=== PATIENT | male | born 1960 | race Caucasian/White ===

== ENCOUNTER 2016-12-02 15:57 | Inpatient (IN) ==
[2016-12-02] MEDS ORDERED: ASPIRIN PO STA (16:17)
[2016-12-02] MEDS ORDERED: ZOFRAN IV ONE (16:18)
[2016-12-02] MEDS ORDERED: MORPHINE IV ONE ×2 (16:18→20:13)
[2016-12-02 16:54] LABS: URINE MICRO REVIEW NEEDED? NO; URINE SOURCE CLEAN CATCH
[2016-12-02 17:03] LABS: BILIRUBIN URINE NEGATIVE (NEGATIVE); BLOOD URINE LARGE (NEGATIVE); COLOR YELLOW; GLUCOSE URINE NEGATIVE (NEGATIVE); LEUKOCYTES URINE NEGATIVE (NEGATIVE); NITRITE URINE NEGATIVE (NEGATIVE); PROTEIN URINE TRACE mg/dL (NEGATIVE); TURBIDITY URINE CLEAR (CLEAR); UR EPITHELIAL CELLS <10 /HPF (<10); URINE BACTERIA NEGATIVE /HPF; URINE CULTURE NEEDED? YES; URINE RBC TNTC /HPF (<10); UROBILINOGEN URINE 2 mg/dL (NORMAL)
[2016-12-02 17:10] LABS: BASO% 0.1 % (0.0-0.8); EOS# 0.06 X1000 (0.0-0.7); EOS% 0.5 % (0.0-10.0); HEMATOCRIT 47.4 % (42.0-52.0); HEMOGLOBIN 16.4 g/dL (14.0-18.0); IMM GRAN# 0.03 X1000 (0.0-0.04); IMM GRAN% 0.3 % (0.0-0.5); LYMPH% 7.8 % (20.5-51.1); MANUAL DIFF NEEDED? NO; MCH 30.8 PG (27-31); MCHC 34.6 g/dL (33-37); MCV 89.1 FL (81-99); MONO# 0.62 X1000 (0.11-0.59); MONO% 5.4 % (1.7-9.3); MPV 11.4 FL (7.4-10.4); NEUT% 85.9 % (42.2-75.2); PLT 288 X1000 (130-400); RBC 5.32 XMIL (4.7-6.1)
[2016-12-02 17:12] LABS: INR 0.98; PROTIME 10.3 Seconds (9.2-11.7); PTT 26.9 Seconds (22.0-36.0)
[2016-12-02 17:26] LABS: AGAP 13; ALBUMIN 4.6 g/dL (3.5-5.0); ALKALINE PHOSPHATASE 49 U/L (32-122); BUN 24 mg/dL (8-22); CALCIUM 9.7 mg/dL (8.8-10.2); CHLORIDE 104 mmol/L (98-107); COSMO 292; GOT 26 U/L (10-34); GPT 29 U/L (10-44); MAGNESIUM 2.2 mg/dL (1.5-2.7); POTASSIUM 4.5 mmol/L (3.5-5.1); SODIUM 144 mmol/L (136-145); TCO2 27 mmol/L (25-35); TOTAL BILIRUBIN 0.37 mg/dL (0.20-1.00); TOTAL PROTEIN 7.2 g/dL (6.3-8.3)
--- NOTE | 2016-12-02 17:27 | Diag Imaging Result Doc PS360 ---
EXAM: CHEST-2 VIEWS INDICATION: L side/chest/back pains TECHNIQUE: 3 views COMPARISON: 12/02/2016 FINDINGS: There is an incidental mild pectus excavatum deformity. The lungs are grossly clear. There is no discrete pleural fluid collection or pneumothorax. The cardiomediastinal silhouette and central vasculature are grossly unremarkable. IMPRESSION: No evidence of acute pathology by plain radiograph. Electronically signed by Edinson Monterroso 12/02/2016 5:25 PM
[2016-12-02 17:29] LABS: CK PROFILE 307 U/L (24-204)
[2016-12-02 17:49] LABS: CK INDEX 4.6 (0.0-2.5); CK-MB 14.16 ng/mL (0.0-5.0)
[2016-12-02 19:09] LABS: CK INDEX 4.8 (0.0-2.5); CK-MB 12.48 ng/mL (0.0-5.0)
--- NOTE | 2016-12-02 19:20 | Diag Imaging Result Doc PS360 ---
EXAM: CT RENAL STONE SEARCH INDICATION: flank/back pains, hematuria TECHNIQUE: Dose reduction protocol was used. COMPARISON: None. FINDINGS: The partially imaged liver and spleen are essentially unremarkable. The gallbladder is partially contracted. The pancreas and adrenal glands are grossly unremarkable. There is a 5 mm obstructing stone in the mid left ureter with associated moderate left hydronephrosis. The urinary bladder is grossly unremarkable. There is fairly extensive diverticulosis coli mainly involving the sigmoid colon but there is no evidence of diverticulitis. There is no evidence of bowel obstruction. The remainder of the GI tract is grossly unremarkable. IMPRESSION: 1.5 mm obstructing stone in the mid left ureter with associated moderate left hydronephrosis. 2.Other incidental/nonacute findings detailed above. Electronically signed by Edinson Monterroso 12/02/2016 7:17 PM
[2016-12-02] MEDS ORDERED: NS 1,000 ML IV ONE (19:24)
[2016-12-02] MEDS ORDERED: FLOMAX PO ONE (19:24)
--- NOTE | 2016-12-02 19:24 | PROVIDER DOCUMENTATION ---
This chart was entered by Susu Webb Scribe, acting as scribe for Zen Lind PA. HPI-Musculoskeletal Pain/Inj - GENERAL Chief Complaint: Back Pain Stated Complaint: LT SIDE PAIN Time Seen by Provider: 12/02/16 16:10 Source: patient - HX OF PRESENT ILLNESS-MUSKULOSKELTAL Nature of Presenting Problem: pt complains of pain to left back onset 0530 upon awakening, pt states pain is dull, achy with occasional sharp shooting pains. pt states he was able to get up and walk to bathroom then began having cold sweats. pt reports multiple episodes of pain changing to sharp and breaking out into cold sweat. He reports that the pain radiates into his left chest wall. there is no point tenderness. Pt denies any previous episodes. He states that he once had an episode of pericarditis but no other cardiac hx noted. Quality of Pain: reports: aching, dull, sharp (occasional sharp/shooting pain) Onset/Duration: this morning Timing: still present Modifying Factors: worse with: analgesics, lying down Any recent injury?: No Locality of Occurance: Home Similar Symptoms Previously?: No Recently seen or treated by another doctor?: No - BACK & NECK PAIN/INJURY Back/Neck Pain Location: reports: paraspinous muscles (left paraspinous into left flank) Back/Neck Pain Radiation: reports: Other (flank, left) Associated Symptoms: reports: muscle spasms History of Chronic Neck or Back Pain?: No Review of Systems - Adult - REVIEW OF SYSTEMS - ADULT Constitutional: reports: night sweats Eyes: reports: no symptoms reported Ears, Nose, Mouth & Throat: reports: no symptoms reported Cardiovascular: reports: no symptoms reported Respiratory: reports: no symptoms reported Gastrointestinal: reports: nausea Genitourinary: reports: flank pain Musculoskeletal: reports: see HPI, back pain Integumentary: reports: no symptoms reported Neurological: reports: no symptoms reported Psychiatric: reports: no symptoms reported Endocrine: reports: no symptoms reported Hematologic/Lymphatic: reports: no symptoms reported Allergic/Immunologic: reports: no symptoms reported All Other Systems: Reviewed and Negative Past History - Adult - PAST MEDICAL HISTORY-ADULT Review of Records: reports: Old Records Reviewed, Nursing Assessment Review, Medications Reviewed, Social history reviewed & non-contributory. Major Childhood Illnesses: reports: denies history Cardiovascular: reports: denies history Respiratory: reports: denies history Gastrointestinal: reports: denies history Musculoskeletal: reports: denies history Neurological: reports: Muscular Dystrophy Psychiatric: reports: denies history Endocrine/Immune: reports: denies history Other Conditions: reports: denies history - PRIOR SURGERIES/PROCEDURES Surgical/Procedure History: reports: none - FAMILY HISTORY Family History: reviewed, not pertinent Physical Exam-Injury Related - Physical Exam-Injury Related Initial Vital Signs Reviewed: Yes General Appearance: appears well, alert, no apparent distress Eyes: PERRL/EOMI Head, Ears, Nose, Mouth & Throat: normocephalic/atraumatic, moist mucous membranes Neck: non-tender, full range of motion Respiratory: chest non-tender, lungs clear, normal breath sounds Cardiovascular: normal peripheral pulses, regular rate, rhythm Abdominal Exam: normal bowel sounds, non tender Male Genitalia: deferred Rectal Exam: deferred Hemoccult Exam: deferred Lymphatic: no adenopathy Back Exam: normal inspection, no CVA tenderness, other (left paraspinal pain/ tenderness radiating into left flank) Extremity: normal range of motion, normal inspection Integumentary: normal color, warm/dry Psych/Mental Status: normal mood/affect - Glascow Coma Score Best Eye Response (Lake): (4) open spontaneously Best Verbal Response ([place]ake): (5) oriented Best Motor Response ([place]): (6) obeys commands Progress - PLAN OF CARE/RESULTS Progress/Plan/Lab Results: Vital Signs - 8 hr 12/02/16 15:59 Temperature 98.6 F Pulse Rate 86 Respiratory Rate 16 Blood Pressure 191/91 O2 Sat by Pulse Oximetry 99 Laboratory Results - last 24 hr 12/02/16 12/02/16 12/02/16 16:36 16:45 16:45 WBC 11.55 H RBC 5.32 Hgb 16.4 Hct 47.4 MCV 89.1 MCH 30.8 MCHC 34.6 RDW Std Deviation 13.5 Plt Count 288 MPV 11.4 H Immature Gran % (Auto) 0.3 Neut % (Auto) 85.9 H Lymph % (Auto) 7.8 L Cameron % (Auto) 5.4 Eos % (Auto) 0.5 Baso % (Auto) 0.1 Immature Gran # (Auto) 0.03 Neut # (Auto) 9.93 H Lymph # (Auto) 0.90 L Cameron # (Auto) 0.62 H Eos # (Auto) 0.06 Baso # (Auto) 0.01 PT INR PTT (Actin FS) D-Dimer Sodium 144 Potassium 4.5 Chloride 104 Carbon Dioxide 27 Anion Gap 13 BUN 24 H Creatinine 0.9 Estimated GFR/1.73 m2 > 60 BUN/Creatinine Ratio 27 Glucose 126 H Calculated Osmolality 292 Calcium 9.7 Magnesium 2.2 Total Bilirubin 0.37 AST 26 ALT 29 Alkaline Phosphatase 49 Creatine Kinase 307 H Creatine Kinase Index 4.6 H CK-MB (CK-2) 14.16 H Troponin T [id number] Pept Total Protein 7.2 Albumin 4.6 Globulin 2.6 Albumin/Globulin Ratio 1.8 Urine Source CLEAN CATCH Urine Color YELLOW Urine Turbidity CLEAR Urine pH 6.0 Ur Specific [place] 1.030 Urine Protein TRACE A Ur Glucose (Stick) NEGATIVE Ur Ketones (Stick) 10 A Urine Blood LARGE A Urine Nitrite NEGATIVE Urine Bilirubin NEGATIVE Urobilinogen Dipstick 2 A Urine Leukocytes NEGATIVE Urine WBC (Auto) 10-20 A Urine RBC (Auto) TNTC A U Epithel Cells (Auto) <10 Urine Bacteria (Auto) NEGATIVE 12/02/16 12/02/16 12/02/16 16:45 16:45 16:45 WBC RBC Hgb Hct MCV MCH MCHC RDW Std Deviation Plt Count MPV Immature Gran % (Auto) Neut % (Auto) Lymph % (Auto) Cameron % (Auto) Eos % (Auto) Baso % (Auto) Immature Gran # (Auto) Neut # (Auto) Lymph # (Auto) Cameron # (Auto) Eos # (Auto) Baso # (Auto) PT 10.3 INR 0.98 PTT (Actin FS) 26.9 D-Dimer 0.29 Sodium Potassium Chloride Carbon Dioxide Anion Gap BUN Creatinine Estimated GFR/1.73 m2 BUN/Creatinine Ratio Glucose Calculated Osmolality Calcium Magnesium Total Bilirubin AST ALT Alkaline Phosphatase Creatine Kinase Creatine Kinase Index CK-MB (CK-2) Troponin T [id number] Pept 50 Total Protein Albumin Globulin Albumin/Globulin Ratio Urine Source Urine Color Urine Turbidity Urine pH Ur Specific [place] Urine Protein Ur Glucose (Stick) Ur Ketones (Stick) Urine Blood Urine Nitrite Urine Bilirubin Urobilinogen Dipstick Urine Leukocytes Urine WBC (Auto) Urine RBC (Auto) U Epithel Cells (Auto) Urine Bacteria (Auto) 12/02/16 12/02/16 12/02/16 16:45 18:16 18:16 WBC RBC Hgb Hct MCV MCH MCHC RDW Std Deviation Plt Count MPV Immature Gran % (Auto) Neut % (Auto) Lymph % (Auto) Cameron % (Auto) Eos % (Auto) Baso % (Auto) Immature Gran # (Auto) Neut # (Auto) Lymph # (Auto) Cameron # (Auto) Eos # (Auto) Baso # (Auto) PT INR PTT (Actin FS) D-Dimer Sodium Potassium Chloride Carbon Dioxide Anion Gap BUN Creatinine Estimated GFR/1.73 m2 BUN/Creatinine Ratio Glucose Calculated Osmolality Calcium Magnesium Total Bilirubin AST ALT Alkaline Phosphatase Creatine Kinase 261 H Creatine Kinase Index 4.8 H CK-MB (CK-2) 12.48 H Troponin T 0.034 0.038 Cpn-V-Cdxpmywarsq Pept Total Protein Albumin Globulin Albumin/Globulin Ratio Urine Source Urine Color Urine Turbidity Urine pH Ur Specific [place] Urine Protein Ur Glucose (Stick) Ur Ketones (Stick) Urine Blood Urine Nitrite Urine Bilirubin Urobilinogen Dipstick Urine Leukocytes Urine WBC (Auto) Urine RBC (Auto) U Epithel Cells (Auto) Urine Bacteria (Auto) Orders Category Date Time Status Saline Loc NOW Care 12/02/16 16:17 Active CHEST-2 VIEWS [RAD] Stat Exams 12/02/16 16:[address] RENAL STONE SEARCH [CT] Stat Exams 12/02/16 17:04 Taken CBC WITH ELECTRONIC DIFF [HEME] Stat Lab 12/02/16 16:45 Completed CK PROFILE [SP CHEM] Stat Lab 12/02/16 16:45 Completed CK PROFILE [SP CHEM] Stat Lab 12/02/16 18:16 Completed COMPREHENSIVE METABOLIC PANEL [CHEM] Stat Lab 12/02/16 16:45 Completed D-DIMER [CHEM] Stat Lab 12/02/16 16:45 Completed MAGNESIUM [CHEM] Stat Lab 12/02/16 16:45 Completed PRO B-NATRIURETIC PEPTIDE Stat Lab 12/02/16 16:45 Completed PROTIME WITH INR [COAG] Stat Lab 12/02/16 16:45 Completed PTT [COAG] Stat Lab 12/02/16 16:45 Completed TROPONIN T Stat Lab 12/02/16 16:45 Completed TROPONIN T Stat Lab 12/02/16 18:16 Completed URINALYSIS W/POSS RFLX CULT-1 [URINALYSIS] Stat Lab 12/02/16 16:36 Completed URINE CULTURE [RM] Routine Lab 12/02/16 17:16 Received Aspirin Med 12/02/16 16:17 Discontinued 325 mg PO STAT STA Morphine Med 12/02/16 16:18 Discontinued 4 mg IV NOW ONE Ondansetron [Zofran] Med 12/02/16 16:18 Discontinued 4 mg IV NOW ONE EKG [EKG] Stat Ther 12/02/16 16:17 Ordered EKG [EKG] Stat Ther 12/02/16 18:09 Ordered Pt's troponin and CK-index have actually gone up although his CK-MB is trending down. I do believe that this is most likely due to his kidney stone however I am concerned that this may have potentially cause strain to his heart. Will discuss c hospitalist for possible admission. Result Diagrams: 12/02/16 16:45 12/02/16 16:45 - REASSESSMENT Reassessment #1 Time Reassessed: 19:05 Status: improving (Pain has improved after medications.) - CT/MRI 1 CT Study: Renal Stone CT Results: 5mm obstructing stone in mid L ureter c Left hydronephrosis - CONSULTS/PCP/HOSPITALIST Notification #1 *Consult/PCP/Hospitalist*: Dr. Davila Time Discussed: 19:23 Consult Disposition: Admit Departure - Departure Date of Disposition Decision: 12/02/16 Time of Disposition Decision: 19:23 DIAGNOSIS: Ureteral stone with hydronephrosis, Elevation of cardiac enzymes Disposition: ADMITTED INPATIENT 09 Certified Medical Emergency: Emergent Condition: Stable Referrals and Follow-Ups: Edinson Carlson MD [Primary Care Provider] - - Critical Care Note This patient required my direct & personal management of CC.: No Attestation - Physician/ CINTIA Attestation Patient care was provided by Advanced Practice Provider:: Yes Advanced Practice Provider:: Zen Lind Advanced Practice Provider documentation review:: The Mid-level provider documentation, treatment plan and medical decision making was reviewed by the physician who agrees with all treatment and medical decision making by the MLP. The physician spent face to face time with patient:: Yes Advanced Practice Provider documentation review:: Supervising physician onsite and consulted in the evaluation and care of this patient. The physician did have a face to face encounter with the patient. This chart was documented by the indicated misty, (Susu Webb, Scribe) and accurately reflects the services I performed and decisions made by , Zen Lind PA, as attested by the provider's signature.
[2016-12-02] MEDS ORDERED: DILAUDID IV ONE (19:55)
[2016-12-02 20:57] LABS: HEMOGLOBIN A1C 5.2 % (4.8-6.0)
--- NOTE | 2016-12-02 21:23 | HISTORY AND PHYSICAL ---
Patient of Dr. Edinson Carlson. REASON FOR ADMISSION: Left flank pain today. HISTORY OF PRESENT ILLNESS: Mr. Saeed Suresh is a 56-year-old man with a past medical history of facioscapulohumeral muscular dystrophy. He comes in today complaining and being awakened by left flank pain which he describes as achy and dull and radiating to the lower most left rib. He says he managed to get up and walk to the bathroom urinate and he said the pain got worse, this intensity pain caused him to break out in a profuse sweat. He then laid back in the supine position in his bed and says the pain eased a little. Said later after an hour tried to get up again and the pain intensified. This went on back and forth for the next 4 hours. He then managed to get up to the recliner and stayed there for 4 hours took some Aleve which initially helped take the edge off his pain but 4 hours later the pain intensified and started radiating down to his left groin. He denies any hematuria but said his urine was darker than usual. He denied any fever or chills. He said he had some nausea intermittently with intensification of the pain. He denies any complaints. 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 On arrival here he denies any cardiorespiratory symptoms or any neurological complaints. No GI complaints otherwise, no arthralgias or rash. No visual symptoms. No headaches. No dysuria or any other genitourinary complaints. No penile discharge. REVIEW OF SYSTEMS: Twelve system review was done positive findings per HPI. ALLERGIES: No allergies. MEDICATIONS: None. SURGERY: None. FAMILY HISTORY: Negative for any kidney disease or kidney stones. No diabetes or heart disease. SOCIAL HISTORY: Does not smoke, drink, or use drugs. He is . DATA: EKG shows incomplete right bundle branch block, normal sinus rhythm with left biatrial enlargement. White count 11,000, hemoglobin and hematocrit 16 and 47, platelets 288,000, 85% neutrophils and BUN is 24, creatinine 0.9, glucose is 126, CK is 261, index 4.8 with an MB of 12.4, troponin 0.038, proBNP is normal. D-dimer is normal. Urinalysis shows too numerous to count WBCs, negative leukocytes, 10-20 white cells, nitrite negative , no bacteria noted. Renal stone CT showed a 5 mm stone with moderate left hydronephrosis and diverticulosis. Chest film no acute pathology was noted. EXAMINATION: Vital signs: Blood pressure is 160/85, heart rate 64, respirations 18, temperature 98.6. General: He is a pleasant middle-aged man who is not in acute distress, is A and O x3 with normal mood and affect. HEENT: Head is normocephalic, atraumatic. PERRLA, EOMI, anicteric not pale. ENT and oropharynx exam is grossly normal. Neck: Supple. No JVD or carotid bruit, thyromegaly. Chest: Was clear to auscultation both lung damon. Cardiovascular: First, sounds heard. No gallops, rubs. Rhythm is regular. Abdomen: Full, soft, nontender, no mass or megaly. Bowel sounds are normal. Positive left CVA tenderness noted. Extremities: Pulses distally in all extremities are intact. Good volume symmetrical, no clubbing, no cyanosis, no edema. Neuro: No focal deficits appreciated. Skin: Intact. No breakdown , lesion, erythema. Muscular exam: Patient has noticeable symmetrical upper extremity atrophy. Also has notable winging of his scapula more on the right compared to the left. ASSESSMENT: At this time is 1. Left hydronephrosis secondary to ureteral nephrolithiasis. 2. Abnormal cardiac enzymes ? from muscular dystrophy versus true ischemic event. 3. Elevated blood pressure. 4. Abnormal EKG PLAN: This time patient will be admitted, aggressively hydrated. Serial cardiac enzymes will be done. Will be treated symptomatically relating to the kidney stone in his left ureter and will consult urology to see in a.m. due to the nature of his cardiac enzymes and abnormal EKG will get cardiology involved. Due to the fact he has muscular dystrophy this could be a false positive. However with elevated blood pressure and abnormal EKG this needs to be worked up further. Echocardiogram was also ordered because is possible his muscular dystrophic illness could extend to his myocardium and this needs to be evaluated. He has had a cardiac catheterization done in the past and was normal at [place]. At that time was diagnosed with pericarditis. Aspirin has been started and Lovenox DVT prophylaxis be done, check A1c and lipid panel and modify any necessary risk factors. cc: Edinson Carlson MD MTDD
[2016-12-03] MEDS ORDERED: DILAUDID ONE (00:23)
[2016-12-03] MEDS ORDERED: TYLENOL PO SCH (00:33)
[2016-12-03] MEDS ORDERED: NORCO-7.5 PO PRN (00:33)
[2016-12-03] MEDS ORDERED: ZOFRAN IV PRN (00:33)
[2016-12-03] MEDS: DILAUDID IV PRN ×2 (00:40→09:45)
[2016-12-03] MEDS ORDERED: LOVENOX SUBQ SCH (01:00)
[2016-12-03] MEDS: NS 1,000 ML IV SCH ×4 (01:25→18:29)
[2016-12-03] MEDS: TORADOL IV SCH ×4 (01:25→18:28)
[2016-12-03] MEDS: PRILOSEC PO SCH ×2 (01:25→09:48)
[2016-12-03 02:03] LABS: HDL 43 mg/dL (35-55); LDL 124 mg/dL; TRIGLYCERIDES 92 mg/dL (39-160); VLDL 18 mg/dL
[2016-12-03 05:58] LABS: MANUAL DIFF NEEDED? NO
[2016-12-03 06:22] LABS: BASO% 0.1 % (0.0-0.8); EOS# 0.13 X1000 (0.0-0.7); EOS% 1.4 % (0.0-10.0); HEMATOCRIT 45.4 % (42.0-52.0); HEMOGLOBIN 15.5 g/dL (14.0-18.0); LYMPH# 1.35 X1000 (1.2-3.4); LYMPH% 14.2 % (20.5-51.1); MCH 30.8 PG (27-31); MCHC 34.1 g/dL (33-37); MCV 90.1 FL (81-99); MONO% 10.5 % (1.7-9.3); MPV 11.4 FL (7.4-10.4); NEUT% 73.8 % (42.2-75.2); PLT 209 X1000 (130-400); RBC 5.04 XMIL (4.7-6.1)
[2016-12-03 06:49] LABS: AGAP 12; ALBUMIN 3.5 g/dL (3.5-5.0); ALKALINE PHOSPHATASE 43 U/L (32-122); BUN 21 mg/dL (8-22); CALCIUM 8.7 mg/dL (8.8-10.2); CHLORIDE 105 mmol/L (98-107); COSMO 284; GOT 26 U/L (10-34); GPT 22 U/L (10-44); POTASSIUM 4.2 mmol/L (3.5-5.1); SODIUM 141 mmol/L (136-145); TCO2 24 mmol/L (25-35)
[2016-12-03] MEDS ORDERED: ASPIRIN PO SCH (09:00)
--- NOTE | 2016-12-03 14:37 | PROGRESS NOTE ---
DATE: 12/03/2016 SUBJECTIVE: Patient reports feeling fine. Denies any chest pain. He reports that the pain in the left flank is better controlled. Patient reports 1st time that he had this kind of pain. OBJECTIVE: Vital Signs: Temperature 97.8 degrees, heart rate 65, respiratory rate 14, blood pressure 126/68, O2 saturation 100% on room air. General: This is a 56-year-old male, lying in bed, in no acute distress. HEENT: Head is normocephalic, atraumatic. Anicteric sclerae and pale conjunctivae. Mucous membranes moist. Neck: Supple. No JVD noted. No carotid bruits. No lymphadenopathy. No thyromegaly. Cardiovascular: S1, S2 heard. No murmurs, gallops, or rubs. Regular rate and rhythm. Respiratory: Clear bilaterally to auscultation. No work of breathing or using accessory muscles. Abdomen: Soft, nontender to palpation. Bowel sounds present. No organomegaly. Positive left CVA tenderness noted. Extremities: Peripheral pulses present in both legs. No clubbing, cyanosis or edema. Neurologic: There is 5/5 motor strength in all 4 extremities. Musculoskeletal: The patient has also noticeable symmetrical upper extremity atrophy and notable winging of his scapula more on the right when compared to the left. LABORATORY DATA: CBC is unremarkable as well the BMP. Troponins have been negative four sets. CK-MB 12.48. ASSESSMENT AND PLAN: 1. Left hydronephrosis secondary to ureteral nephrolithiasis. Renal function is okay. Urology has been consulted. We will see what they have to say. Pain is under control. We will continue with the same management. 2. Abnormal cardiac enzymes, although the troponins are negative so far. Four sets are negative. CK-MB has been elevated. For that reason, Cardiology was consulted on admission. An echocardiogram will be done. We will follow results. 3. Hypertension. The blood pressure is now much better at 126/60 on last reading. Patient has not been restarted on any blood pressure medications. 4. Overall this patient is doing good. After Urology evaluation, we will see what they plan. When he is cleared by both Urology and Cardiology, he can be discharged. cc: Dawood Montoya MD
[2016-12-03] MEDS ORDERED: DIPRIVAN 1% ONE (14:45)
[2016-12-03] MEDS ORDERED: XYLOCAINE-MPF 2% ONE (14:45)
[2016-12-03] MEDS ORDERED: FENTANYL ONE (14:48)
[2016-12-03] MEDS ORDERED: KEFZOL 1 GM/D5W 1 GM/50 ML IVPB ONE (15:17)
[2016-12-03] MEDS ORDERED: DECADRON ONE (15:35)
--- NOTE | 2016-12-03 16:33 | ECHO REPORT ---
ORDER DATE: 12/03/2016 ECHOCARDIOGRAPHIC MEASUREMENTS: 1. Interventricular septum 1.4 2. Left ventricular posterior wall 1.4. 3. Diastolic diameter 4.2. 4. Left atrium 3.4. 5. Aorta 3.6. SUMMARY OF 2-DIMENSIONAL IMAGIN. Normal left ventricular cavity size. Mild left ventricular hypertrophy. Estimated ejection fraction of 60-65%. Aortic valve leaflets are trileaflet. Mitral valve was normal. Tricuspid valve was normal. Pulmonic valve was normal. 2. Peak velocity across the aortic valve less than 2 m/sec. There is no aortic stenosis or regurgitation. There is mild mitral regurgitation. Mild tricuspid regurgitation. Peak velocity across the tricuspid valve was 2.5 m/sec. There is trace pulmonary regurgitation. Anterior echo-free space suggestive of pericardial fat pad was noted. There is no pericardial effusion or obvious intracardiac mass or thrombus seen. Prominent eustachian valve was noted. Normal variant. cc: MD Hugo Carrillo MD
[2016-12-03 16:52] VITALS: BP 158/82
[2016-12-03] MEDS ORDERED: NORCO-10 PO PRN (16:53)
--- NOTE | 2016-12-03 20:13 | CONSULTATION ---
DATE OF CONSULTATION: 12/03/2016 CONSULTING PHYSICIAN: Hugo Davila MD with Hospitalist Service. REASON FOR CONSULTATION: Left ureteral stone. HISTORY OF PRESENT ILLNESS: A 56-year-old male without previous history of urolithiasis, who woke up at night a day ago with profuse sweats and sharp left flank pain. The pain was intermittent, it was associated with dry heaving. He presented to the emergency room where a CT abdomen and pelvis renal stone search on 12/10/2016 revealed a 5 mm obstructing stone at the level of left mid ureter with hydronephrosis. He was admitted to the hospital secondary to requirement for IV pain medication. PAST MEDICAL HISTORY: Possible muscular dystrophy. Per patient and his , genetic testing is pending. PAST SURGICAL HISTORY: None. ALLERGIES: No known drug allergies. MEDICATIONS: None. FAMILY HISTORY: Negative for urolithiasis or malignancies. SOCIAL HISTORY: He denies tobacco, alcohol drug use. REVIEW OF SYSTEMS: Reviewed 12 systems and negative except as documented in HPI. PHYSICAL EXAMINATION: Vital Signs: T 97.9, P 70, BP 173/98. General: No acute distress. Pleasant male. HEENT: Normocephalic, atraumatic. Cardiovascular: Regular rhythm. Pulmonary: Bilateral breath sounds. Abdomen: Nontender, nondistended. Back: Mild left CVA tenderness. Genitourinary: Normal external male genitalia. Lymphatics: No groin lymphadenopathy. Dermatologic: No obvious skin rashes. Neurologic: Alert and oriented x3. Psychiatric: Appropriate mood and affect. PERTINENT LABORATORY DATA: White cell count of 10,000, creatinine of 0.8. Urinalysis on 12/02/2016 positive for blood and white cells, negative for bacteria. PERTINENT IMAGES: CT abdomen and pelvis stone search on 12/10/2016 as above. ASSESSMENT AND PLAN: A 56-year-old male with flank pain, hydronephrosis, left mid ureteral stone. He continues to have significant pain relieved with Dilaudid. We discussed medical expulsive therapy versus cystoscopy, left ureteroscopy, laser lithotripsy, stone basket extraction, stent. He desires to proceed with intervention. The risks of the procedure including, but not limited to, bleeding, infection, injury to the bladder, injury to the ureter, inability to get the stone, need for additional interventions were explained. He voiced understanding and wants to proceed. PLAN: To OR today for cystoscopy, left ureteroscopy, laser lithotripsy, stone basket extraction, ureteral stent placement. Thank you for the consultation. cc: Otoniel Ibarra MD
--- NOTE | 2016-12-03 20:18 | OPERATIVE NOTE ---
PROCEDURE DATE: 12/03/2016 PREOPERATIVE DIAGNOSES: 1. Left ureteral stone. 2. Flank pain. 3. Hydronephrosis. PRIMARY PROCEDURES: Cystoscopy, left ureteroscopy, laser lithotripsy, stone basket extraction, placement of 6-[place] Islander, 26 cm ureteral stent. SURGEON: Otoniel Ibarra. INDICATIONS: 56-year-old male who presented with 5 mm left midureteral stone, significant flank pain, hydronephrosis with obstructive changes. He desires intervention. FINDINGS: Obstructing stone. The fragments were sent off for analysis. Successful stent placement. DESCRIPTION OF PROCEDURE: After obtaining informed consent patient was brought to the operating room. Perioperative antibiotics and laryngeal mask anesthesia were administered. He was placed in lithotomy position, prepped and draped sterile fashion. A 21-[place] Islander rigid cystoscope was used to gain access to the bladder which was then examined systematic fashion. He had no evidence of mucosal lesions, excessive trabeculations, diverticula noted. I turned attention to left ureteral orifice which was cannulated with PTFE wire. It was advanced up to level renal pelvis. The stone was seen on fluoroscopy but appeared to be in the proximal ureter rather than distal. I then introduced rigid ureteroscope alongside of the wire to the level of the stone. There was significant mucosal edema and heaping. In order to facilitate access to the stone I had to use a second PTFE wire via the ureteroscope and guided. His ureter was fairly narrow. We then used 090 basket to secure the stone. 273 micron Holmium laser fiber with energy settings of 8 joules and 0.8 Hertz were used to break the stone up into smaller fragments. Those were retrieved and sent off for analysis. Repeat ureteroscopy revealed no evidence of ureteral mucosal injury or sizable residual stone fragments. We elected to place ureteral stent given the degree mucosal edema. In a standard fashion 6-[place] Islander x26 cm stent was placed over the wire via cystoscope with the proximal coil position confirmed fluoroscopically, distal coil directly visualized. The string was left attached to the stent. Bladder was emptied, cystoscope was removed, he was extubated taken to PACU further recovery. ESTIMATED BLOOD LOSS: None. COMPLICATIONS: None. DISPOSITION: To PACU and ultimate disposition per hospitalist service. I have discussed the patient with Dr. Rodriguez and him told that from my standpoint the patient was cleared to be discharged if it is agreeable Dr. Rodriguez. I have left him prescription for [place] 10 #20 and Bactrim DS #10. He was instructed to have the stent removed on 12/06/2016 and I would like to see him in 4 weeks to review his stone analysis. cc: Otoniel Ibarra MD
--- NOTE | 2016-12-03 20:58 | CONSULTATION ---
DATE OF CONSULTATION: 12/03/2016 IMPRESSION: 1. Elevated CPK with normal troponins. 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 2. Abnormal ECG suggesting left atrial abnormality. 3. Patient admitted with left flank pain, has been found to have left obstructing midureteral stone with moderate left hydronephrosis. RECOMMENDATIONS: 1. Followup echocardiography. 2. As abnormal CPK appears likely noncardiac in origin, patient is acceptable cardiac risk for urologic procedure under general anesthesia. HISTORY: This 56-year-old white male with past history of fascioscapulohumeral muscular dystrophy was admitted with left flank pain. He has been found to have obstructing stone in left ureter with moderate left hydronephrosis. CPK was abnormal prompting cardiology consult. 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 However disease has taken a rather indolent course. He is still fairly active and has some physical limitations with respect to walking up stairs. He has had elevated CPKs in the past. He has had cardiac evaluations in the past but not in the last few years. He had a previous episode of pericarditis and describes fairly classic pericardial pain. He had echocardiography at that time and does not recall any history of valvular heart disease. He has had no chest pain or dyspnea. PAST MEDICAL HISTORY: Facioscapulohumeral muscular dystrophy. PAST SURGICAL HISTORY: None. ALLERGIES: No known drug allergies. MEDICATIONS PRIOR TO ADMISSION: As listed. SOCIAL HISTORY: He is . 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 He does not smoke or use alcohol. FAMILY HISTORY: Positive for facioscapulohumeral muscular dystrophy. There is no family history of early coronary disease. REVIEW OF SYSTEMS: Pulmonary: Negative. Gastrointestinal: Negative. Constitutional: Negative. Remainder review of systems negative/noncontributory with 14 total systems reviewed. PHYSICAL EXAMINATION: General: This is a pleasant, middle-aged male in no distress. Vital signs: Blood pressure 126/68, heart rate 65 and regular. HEENT: Extraocular movements intact. Mucous membranes are moist. Neck: Supple without jugular venous distention. No carotid bruits. Chest: Clear to auscultation. Cardiac Exam: Reveals a regular rate and rhythm without appreciable murmur or gallop. Abdomen: Soft, nontender. Bowel sounds are normal. Extremities: Without edema. Neurologic Exam: Reveals him to be alert, fully oriented. Speech is fluent. Moves all 4 extremities equally well. Skin: Warm and dry. Psychiatric: Reveals mood to be appropriate. DIAGNOSTIC DATA: ECG demonstrates sinus rhythm, left atrial abnormality and RSR prime in lead V1 suggesting right ventricular conduction delay. LAB DATA: Remarkable for CPK 307 and 261, troponin T 0.038 and 0.024. cc: Jackson Lyons MD
--- NOTE | 2016-12-04 05:16 | EKG Report ---
Test Performed on : 12/03/2016 2:07:27 PM Test Reason : pre op Blood Pressure : / mmHG Vent. Rate : 062 BPM Atrial Rate : 062 BPM P-R Int : 166 ms QRS Dur : 104 ms QT Int : 414 ms P-R-T Axes : 065 025 019 degrees QTc Int : 420 ms Normal sinus rhythm. Left atrial enlargement RSR' or QR pattern in V1 suggests right ventricular conduction delay T wave inversion in III Nonspecific ST elevation V2 Borderline ECG No previous ECGs available Confirmed by Martin Lind DO ([id number]) on 12/06/2016 5:21:30 PM
--- NOTE | 2016-12-04 08:21 | Diag Imaging Result Doc PS360 ---
EXAM: FLUOROSCOPY CYSTO HISTORY: LEFT URETERAL STENT TECHNIQUE: Nine fluoroscopic images from cystography COMMENT: There is placement of a left ureteral stent. No contrast was administered. IMPRESSION: Left ureteral stent placement. Electronically signed by Norman Carrington 12/04/2016 8:19 AM
--- NOTE | 2016-12-04 16:32 | DISCHARGE SUMMARY ---
ADMISSION DATE: 12/02/2016 DISCHARGE DATE: 12/03/2016 CONSULTATIONS: 1. Dr. Ibarra with Urology. 2. Dr. Jackson Lyons with Cardiology. PERTINENT PROCEDURES: 1. Renal CT showed a 5 mm obstructing stone in the mid left ureter, with associated moderate left hydronephrosis. 2. Echocardiogram showed an EF of 60% to 65%. SURGICAL PROCEDURES: 1. Cystoscopy with left ureteroscopy. 2. Laser lithotripsy. 3. Stone basket extraction. 4. Placement of 6-[place], 26 cm, ureteral stent, performed by Dr. Ibarra. DISCHARGE DIAGNOSES: 1. Left mid ureteral stone with left hydronephrosis, status post cystoscopy, left ureteroscopy, laser lithotripsy, stone basket extraction, with placement of 6-[place], [address] Ibarra. The patient has been discharged home, and will follow up with Dr. Ibarra. 2. Abnormal cardiac enzymes, secondary to muscular dystrophy, was ruled out for true ischemic event by Cardiology. HOSPITAL COURSE: Mr. Suresh is a 56-year-old male with past medical history of facioscapulohumeral muscular dystrophy. He came to the ED complaining of being awakened by left flank pain, which he described as achy and dull radiating to the lower-most left rib. He got up, walked to the bathroom to urinate, and he said the pain got worse. The intensity caused him to break out in a profuse sweat. He laid down in the supine position in bed, and said the pain eased a little. An hour later, he tried to get up again, and the pain intensified. This went back-and- forth for the next 4 hours. He then managed to get up to the recliner and stayed there for another 4 hours, took some Aleve, which initially helped take the edge off his pain, but, 4 hours later, the pain intensified and started radiating down his left groin. He denied any hematuria, but said that his urine was darker than usual. WORKUP IN THE EMERGENCY DEPARTMENT: EKG revealed an incomplete right bundle branch block, with normal sinus rhythm with left biatrial enlargement. A white count of 11. CK of 261, index of 4.8, with an MB of 12.4 and a troponin of 0.038. Urinalysis showed btc-[id number]-[id number]-count WBCs, nitrate negative. No bacteria noted. Renal stone CT showed a 5 mm stone, with moderate left hydronephrosis and diverticulosis. Chest x-ray showed no acute pathology. HOSPITAL COURSE: The patient was admitted and aggressively hydrated, with serial cardiac enzymes. He was treated symptomatically relating to his kidney stone. Consulted Urology, as well as Cardiology, to see if it was truly cardiac in nature, or just related to his muscular dystrophy. He has had false-positives in the past. His echocardiogram was negative. He was evaluated by Dr. Lyons, who felt his workup was negative, it was noncardiac in nature, and was related to his muscular dystrophy. Dr. Ibarra did proceed today with his cystoscopy, left ureteroscopy, laser lithotripsy, stone basket extraction and placement of 6-[place], 26 cm ureteral stent, that the patient tolerated well,. He was discharged home on p.o. pain medication, as well as p.o. antibiotics, on 12/03/2016. VITAL SIGNS: Temperature is 98.6 degrees, heart rate 69, respirations 18, blood pressure 145/78, O2 is 98% on room air. DISCHARGE DIET: Regular. DISCHARGE MEDICATIONS: 1. Aspirin 81 mg p.o. daily. 2. [place] 10, one each p.o. q.4 hours. 3. Bactrim DS, 1 each p.o. b.i.d. for 5 days. FOLLOWUP: The patient is being discharged back home. He is to follow up with Dr. Ibarra, as well as his primary care physician, Dr. Neves , in I week. He can return to the ED for any worsening of symptoms. Dictated by MARY JANE Salmon for Dawood Montoya MD cc: Dawood Montoya MD
== END 2016-12-03 20:06 | disposition home or self-care (01) ==
LOC: ED 15:57 → EDIPHOLD 15:58 → SUATTDRO 15:58 → 4N 12-03 01:02
PROVIDERS: ATTEND Internal Medicine